=== PATIENT | female | born 1990 | race Caucasian/White ===

== ENCOUNTER 2016-09-03 13:48 | Outpatient (CLI) | payer OTHER ==
[~2016-09-03] VITALS: Ht 165.1 cm; Wt 80.9 kg
[2016-09-03 14:21] VITALS: Ht 165.1 cm; Wt 80.9 kg
[2016-09-03 14:22] VITALS: BP 116/62; PULSE 89; RESP 18
[2016-09-03] MEDS ORDERED: PRENAT PO (14:23)
[2016-09-03] MEDS ORDERED: FERR325C PO (14:24)
[2016-09-03 14:36] LABS: ADD UMIC NO; URINE BILIRUBIN (Dip) NEGATIVE (NEGATIVE); URINE BLOOD (Dip) NEGATIVE (NEGATIVE); URINE COLOR LT. YELLOW (YELLOW); URINE GLUCOSE (Dip) NEGATIVE (NEGATIVE); URINE KETONES (Dip) 40 (NEGATIVE); URINE LEUKOCYTE ESTERASE (Dip) NEGATIVE (NEGATIVE); URINE NITRITE (Dip) NEGATIVE (NEGATIVE); URINE TOTAL PROTEIN (Dip) NEGATIVE (NEGATIVE); URINE UROBILINOGEN (Dip) 0.2 E.U./dL (0.1-1.0)
--- NOTE | 2016-09-03 14:53 | RADRPT ---
PROCEDURE: US OB CLINICAL INDICATION: CRAMPING TECHNIQUE: Multiple sonographic images of the pelvis were obtained. The images were reviewed on a PACS workstation. COMPARISON: Obstetrical ultrasound from 07/05/2016 FINDINGS: The cervix is not well visualized. There is a single viable intrauterine gestation. Cardiac activity is present with 157 beats per minute. There is a vertex presentation. The placenta is anterior. There is a 4.4 x 2.8 x 3.1 cm hypoechoic and hypovascular round lesion at the superficial aspect of the placenta which is likely a focal abruption. There is no evidence for placenta previa. There is a subjectively normal amount of amniotic fluid. Measurements were made in order to determine age. The results are as follows (cm): BPD =8.32 HC =28.81 AC =29.43 FL =6.00 Estimated gestational age by ultrasound of approximately 32 weeks, 3 days. The estimated date of delivery by ultrasound is 10/26/2016. Reported gestational age by LMP of approximately 32 weeks, 3 days. The reported date of delivery by LMP is 10/26/2016. EFW = 2011 grams (45th percentile) IMPRESSION: Single viable intrauterine gestation of approximately 32 weeks, 3 days . The estimated date of delivery is 10/26/2016 . Dating by ultrasound is consistent with dating by LMP. Anterior placenta with a 4.4 cm focal abruption. Estimated weight in the 45th percentile. Cephalic presentation. RPTAT: EE Physician Savi Date Time Electronically viewed and signed by Physician Savi on 09/03/2016 14:52 /
--- NOTE | 2016-09-03 14:53 | RADRPT ---
PROCEDURE: US OB biophysical profile. CLINICAL INDICATION: evaluation TECHNIQUE: Multiple sonographic images of the pelvis were obtained. The images were reviewed on a PACS workstation. COMPARISON: No prior studies are available for comparison. FINDINGS: There is a single viable intrauterine gestation. Cardiac activity is present with 152 beats per min stefania. There is a vertex presentation. The placenta is anterior. There is no evidence of placental abruption. There is a normal amount of amniotic fluid with an BERHANE = 11.4 cm. Biophysical profile: movement 2/2 tone 2/2. breathing 2/2 BERHANE 2/2 Total 03/01 RPTAT: AA . IMPRESSION: Normal biophysical profile. Normal BERHANE. Physician Savi Date Time Electronically viewed and signed by Physician Savi on 09/03/2016 14:53 /
[2016-09-03] MEDS ORDERED: LACTATED RINGER'S 1,000 ML IV ONE (16:00)
[2016-09-03] MEDS ORDERED: LACTATED RINGER'S 1,000 ML IV SCH (17:00)
--- NOTE | 2016-09-03 17:09 | RADRPT ---
PROCEDURE: Limited obstetric ultrasound CLINICAL INDICATION: Pain TECHNIQUE: Multiple transverse and longitudinal grayscale images of the pelvis were obtained anguiano sabdominally and transvaginally.. COMPARISON: same day FINDINGS: The cervix is closed with a length of 4.8 cm. There is a single viable intrauterine gestation. Cardiac activity is present with 129 beats per min [place]. There is a vertex presentation. The placenta is anterior. There is no evidence for an abruption or placenta previa. There is a 4 cm anterior fibroid noted. RPTAT: AA IMPRESSION: Cervix length measures 4.8 cm. Anterior uterine fibroid. .Wallace Yao MD, MD Date Time Electronically viewed and signed by .Wallace Yao MD, on 09/03/2016 17:09 .S/
--- NOTE | 2016-09-03 19:03 | QN ---
Documentation Comment OB Triage: 32+wks GA some cramps currently not mora +FM No VB No LOF No CTXs NST reassuring [place] No CTXs CXL 4.8cm +Ketones --->Dehydrated:Received IV Hydration --->Instructions given to patient --->Patient's questions answered --->She will follow up with Her chief creative officer DONALD CARMONA M.D. Sep 03, 2016 19:03
--- NOTE | 2016-09-03 19:41 | TRIAGE ---
OB Triage Datetime Report Generated by CPN: 09/03/2016 19:41 Datetime: 09/03/2016 18:53 Stage of : OB Triage FHR Baseline Changes: No Baseline Change Datetime: 09/03/2016 18:35 Stage of : OB Triage Labor Evaluation Frequency: x3 Monitor Mode: External Duration (sec)2399: 40-60 Quality: Mild Resting Tone Grimes: Relaxed Heart Rate FHR Baseline Rate: 130 Monitor Mode: External US FHR Baseline Changes: No Baseline Change Variability: Moderate 6-25 bpm Accelerations: 15X15 Decelerations: None Category: Category I Datetime: 09/03/2016 18:31 Stage of : OB Triage Datetime: 09/03/2016 17:28 Stage of : OB Triage Labor Evaluation Frequency: 5 Monitor Mode: External Duration (sec)2399: 40-60 Quality: Mild Resting Tone Grimes: Relaxed Heart Rate FHR Baseline Rate: 130 Monitor Mode: External US FHR Baseline Changes: No Baseline Change Variability: Moderate 6-25 bpm Accelerations: 15X15 Decelerations: None Category: Category I Datetime: 09/03/2016 16:47 Stage of : OB Triage Datetime: 09/03/2016 16:28 Stage of : OB Triage Labor Evaluation Frequency: 5.5-9 Monitor Mode: External Duration (sec)2399: 50-80 Quality: Mild Resting Tone Grimes: Relaxed Heart Rate FHR Baseline Rate: 135 Monitor Mode: External US FHR Baseline Changes: No Baseline Change Variability: Moderate 6-25 bpm Accelerations: 15X15 Decelerations: None Category: Category I Datetime: 09/03/2016 15:54 Stage of : OB Triage Datetime: 09/03/2016 15:45 Stage of : OB Triage Labor Evaluation Frequency: irregular Monitor Mode: External Duration (sec)2399: 50-100 Quality: Mild Resting Tone Grimes: Relaxed Heart Rate FHR Baseline Rate: 120 Monitor Mode: External US FHR Baseline Changes: No Baseline Change Variability: Moderate 6-25 bpm Accelerations: 15X15 Decelerations: None Category: Category I Datetime: 09/03/2016 14:39 Monitor Mode: External Duration (sec)2399: 4-8 Quality: Mild Intensity IUP (mmHg): 40-90 Resting Tone Grimes: Relaxed Heart Rate FHR Baseline Rate: 125 Monitor Mode: External US Variability: Moderate 6-25 bpm Accelerations: 15X15 Decelerations: Variable Category: Category I Comments: APPROPRIATE FOR GA Datetime: 09/03/2016 14:34 Stage of : OB Triage Datetime: 09/03/2016 14:00 Monitor Mode: External Monitor Mode: External US Datetime: 09/03/2016 13:58 Assessment Type: Triage Maternal Assessment Level of Consciousness: Fully Conscious DTR's/Clonus: DTRs 2+; No Clonus Headache: Denies Blurred Vision: No Respiratory Effort: Unlabored Breath Sounds, Left: Clear and Equal Breath Sounds, Right: Clear and Equal Nausea/Vomiting: Denies RUQ Epigastric Pain: Denies Lower Extremities Edema: None Degree: None Upper Extremities Edema: None Degree: None Facial Edema: None Fall Risk Assessment History of Falling: (0) No Secondary Diagnosis: (0) No Ambulatory Aid: (0) Bedrest/Nurse Assist IV Therapy: (0) No Gait: (0) Normal/Bedrest/Immobile Mental Status: (0) Oriented to Own Ability Fall Score: 0 Fall Risk Score Definition: No Risk: No action required Datetime: 09/03/2016 13:52 Time of Arrival: 09/03/2016 13:46 EGA: 32.3 Arrived By: Ambulatory Arrived From: Dr. Villa Chief Complaint: Sent from clinic with orders Movement: Present Contractions: Irregular Time Contractions Began: 09/03/2016 06:00 Rupture of Membranes: Denies Vaginal Bleeding: None Vaginal Discharge: Denies Recent Sexual Intercouse: Denies Abdominal Trauma: Not Applicable Patient Complaints: Cramping Provider Notified: DELSHAD Initial Plan: VS, EFM, EFW, BPP, CL, UA Datetime: 07/05/2016 15:01 Stage of : OB Triage Maternal Assessment Level of Consciousness: Fully Conscious DTR's/Clonus: DTRs 1+ Headache: Denies Breath Sounds, Left: Clear and Equal Breath Sounds, Right: Clear and Equal Nausea/Vomiting: Denies RUQ Epigastric Pain: Denies Labor Evaluation Frequency: NONE Monitor Mode: External Resting Tone Grimes: Relaxed Heart Rate FHR Baseline Rate: 140 Monitor Mode: External US Variability: Moderate 6-25 bpm Accelerations: 10X10 Decelerations: Variable Category: Category I Pain Assessment Pain Scale: 3 Pain Presence: Constant Pain Type: Ache Pain Location: Abdomen Pain Goal: 2 Vaginal Exam Membrane Status: Intact Datetime: 07/05/2016 14:03 Stage of : OB Triage Maternal Assessment Level of Consciousness: Fully Conscious DTR's/Clonus: DTRs 1+ Headache: Denies Breath Sounds, Left: Clear and Equal Breath Sounds, Right: Clear and Equal Nausea/Vomiting: Denies RUQ Epigastric Pain: Denies Labor Evaluation Frequency: NONE Monitor Mode: External Resting Tone Grimes: Relaxed Heart Rate FHR Baseline Rate: 140 Monitor Mode: External US Variability: Moderate 6-25 bpm Accelerations: 10X10 Decelerations: Variable Category: Category I Pain Assessment Pain Scale: 3 Pain Presence: Constant Pain Type: Ache Pain Location: Abdomen Pain Goal: 2 Vaginal Exam Membrane Status: Intact Datetime: 07/05/2016 13:30 Stage of : OB Triage Maternal Assessment Level of Consciousness: Fully Conscious DTR's/Clonus: DTRs 1+ Headache: Denies Breath Sounds, Left: Clear and Equal Breath Sounds, Right: Clear and Equal Nausea/Vomiting: Denies RUQ Epigastric Pain: Denies Labor Evaluation Frequency: NONE Monitor Mode: External Resting Tone Grimes: Relaxed Heart Rate FHR Baseline Rate: 140 Monitor Mode: External US Variability: Moderate 6-25 bpm Accelerations: 10X10 Decelerations: Variable Category: Category I Comments: REACTIVE ACCORDING TO AGE Pain Assessment Pain Scale: 3 Pain Presence: Constant Pain Type: Ache Pain Location: Abdomen Pain Goal: 2 Vaginal Exam Membrane Status: Intact Datetime: 07/05/2016 12:45 Stage of : OB Triage Datetime: 07/05/2016 12:32 Maternal Assessment Level of Consciousness: Fully Conscious DTR's/Clonus: DTRs 1+ Headache: Denies Blurred Vision: No Respiratory Effort: Unlabored Breath Sounds, Left: Clear and Equal Breath Sounds, Right: Clear and Equal Nausea/Vomiting: Denies RUQ Epigastric Pain: Denies Facial Edema: None Labor Evaluation Frequency: NONE Resting Tone Grimes: Relaxed Heart Rate FHR Baseline Rate: 140 Monitor Mode: External US Variability: Moderate 6-25 bpm Accelerations: 10X10 Decelerations: None Category: Category I Pain Assessment Pain Scale: 3 Pain Presence: Constant Pain Type: Ache Pain Location: Abdomen Pain Goal: 2 Vaginal Exam Membrane Status: Intact Datetime: 07/05/2016 12:30 Stage of : OB Triage Datetime: 07/05/2016 12:27 Assessment Type: Triage EGA: 23.6 Maternal Assessment Level of Consciousness: Fully Conscious DTR's/Clonus: DTRs 2+; No Clonus Headache: Denies Blurred Vision: No Respiratory Effort: Unlabored; Regular Rhythm; Equal Expansion Breath Sounds, Left: Clear and Equal Breath Sounds, Right: Clear and Equal Nausea/Vomiting: Denies RUQ Epigastric Pain: Denies Lower Extremities Edema: None Degree: None Upper Extremities Edema: None Degree: None Facial Edema: None Fall Risk Assessment History of Falling: (0) No Secondary Diagnosis: (0) No Ambulatory Aid: (0) Bedrest/Nurse Assist IV Therapy: (0) No Gait: (0) Normal/Bedrest/Immobile Mental Status: (0) Oriented to Own Ability Fall Score: 0 Fall Risk Score Definition: No Risk: No action required Datetime: 07/05/2016 12:10 Time of Arrival: 07/05/2016 12:10 Arrived By: Ambulatory Arrived From: Home Chief Complaint: PATIENT CAME IN C/O ABDOMINAL PAIN SINCE THIS AM, STATES THAT HAD 3 SOFT BMS W ELL Movement: Present Contractions: Denies/Absent Rupture of Membranes: Denies Vaginal Discharge: Denies Recent Sexual Intercouse: Denies Abdominal Trauma: Not Applicable Additional Patient Complaints: DENIES ANY OTHER PROBLEM AT THIS TIME Time Provider Notified: 07/05/2016 12:30 Provider Notified: TUNDE Initial Plan: MONITOR, UA, CX LENGHT, CBC, CMP, AMILYSE, LIPASE
== END 2016-09-03 19:15 | disposition home or self-care (01) ==
LOC: OBT 13:48 → L-D 13:48 → OBT 19:15
PROVIDERS: ATTEND Obstetrics & Gynecology
DX: O26.893 Other specified pregnancy related conditions, third trimester (principal); R10.2 Pelvic and perineal pain; Z3A.32 32 weeks gestation of pregnancy
CPT/HCPCS: 36415; 76815; 76817; 76818; 81003; 96360; 96361; J7120; Z7500; G0463